=== PATIENT | male | born 1955 | race Caucasian/White ===

== ENCOUNTER 2018-10-08 05:11 | Observation (INO) | payer OTHER ==
[2018-10-08] VITALS (7 sets, daily range): BP systolic 129–137; BP diastolic 75–87
[~2018-10-08] VITALS: Ht 175.3 cm; Wt 103.0 kg
[~2018-10-08 05:11] MED LIST: CRESTOR10 MG PO; FENOFIBRATE145 MG PO; FENOPROFEN CAL600 MG PO; LISINOPRIL10 MG PO; METFORMIN HCL500 MG PO
[2018-10-08] MEDS ORDERED: GABAPENTIN 300 MG CAP ONE (06:03)
[2018-10-08] MEDS ORDERED: CEFAZOLIN SOD 1 GM/NS 50ML 100 ML IV ONE (06:03)
[2018-10-08] MEDS ORDERED: CELECOXIB 200 MG CAP ONE (06:03)
[2018-10-08] MEDS ORDERED: DEXAMETHASONE SOD PHOS 10 MG/1 ML VIAL ONE (06:03)
[2018-10-08] MEDS ORDERED: VANCOMYCIN HCL 1,000 MG ONE (06:11)
[2018-10-08] MEDS ORDERED: TRANEXAMIC ACID 1,000 MG/10 ML ML ONE (06:12)
[2018-10-08] MEDS ORDERED: BACITRACIN 50,000 UNIT VIAL ONE (06:12)
[2018-10-08] MEDS ORDERED: SODIUM CHLORIDE 0.9% 500ML 500 ML ONE (06:12)
[2018-10-08] MEDS ORDERED: ROPIVACAINE 246.25 MG, EPINEPHRINE HCL 1:1000 1ML 0.5 MG, CLONIDINE HCL 0.08 MG, KETORO... INJ ONE ×5 (07:30)
[2018-10-08] MEDS ORDERED: IBUPROFEN 800MG/ 250ML 250 ML IV ONE (08:20)
[2018-10-08] MEDS ORDERED: SODIUM CHLORIDE 0.9% 1000ML 1,000 ML IV SCH (08:55)
[2018-10-08] MEDS ORDERED: HYDROCODONE/APAP 7.5MG-325MG 1 EA TAB PO PRN (09:00)
[2018-10-08] MEDS ORDERED: DIPHENHYDRAMINE HCL INJ 50 MG/ML VIAL IM/IV PRN (09:00)
[2018-10-08] MEDS ORDERED: ONDANSETRON HCL INJ 2MG/ML 2ML 2 MG/ML VIAL IV PRN (09:00)
[2018-10-08] MEDS ORDERED: DOCUSATE SODIUM 100 MG CAP PO PRN (09:00)
[2018-10-08] MEDS ORDERED: HYDROCODONE/APAP 5MG-325MG TAB PO PRN (09:00)
[2018-10-08] MEDS ORDERED: KETOROLAC TROMETHAMINE 30 MG/ML VIAL IV PRN (09:00)
[2018-10-08] MEDS ORDERED: PROMETHAZINE HCL (IM) 25 MG/ML VIAL IM PRN (09:00)
[2018-10-08] MEDS ORDERED: CELECOXIB 100 MG CAP PO SCH (09:00)
[2018-10-08] MEDS ORDERED: ACETAMINOPHEN 650 MG SUPP PR PRN (09:00)
[2018-10-08] MEDS ORDERED: FENTANYL CITRATE/PF 100MCG/2 ML INJ ONE ×2 (09:31→17:48)
[2018-10-08] MEDS ORDERED: INSULIN REGULAR, HUMAN 100 UNIT/1 ML 3ML VIAL ONE (09:33)
--- NOTE | 2018-10-08 09:39 | Diagnostic Imaging Report ---
Knee radiograph, 2 views. History: Findings: Postoperative findings of left knee arthroplasty with prosthetic components in anatomic alignment. No acute fracture. Overlying subcutaneous emphysema and surgical skin teressa are present. Small joint effusion. IMPRESSION: Status post right knee replacement in anatomic position. Signed by: Laurel Manrique MD on 10/08/2018 9:35 AM
--- NOTE | 2018-10-08 10:07 | NUR ---
Patient admitted to unit from PACU. Patient is post op left knee replacement. Patient dressing is double MIGDALIA wrapped d/t bleeding from incisional site. No bleeding noted at this time. Pedal pulses palpable. Lung zamora clear to auscultation. Bowel sounds present but hypoactive. No c/o pain at this time. Right hand IV in place. IV fluids infusing at this time. Patient d/t void.
[2018-10-08] MEDS: ACETAMINOPHEN 1000 MG/100 ML IV SCH ×3 (12:04→23:24)
--- NOTE | 2018-10-08 13:00 | Operative Report ---
DATE OF PROCEDURE: 10/08/2018 SURGEON: Nikunj Lewis MD MECHANICAL MAINTENANCE: Nelson Cordero PA-C. PREOPERATIVE DIAGNOSIS: Osteoarthritis, left knee. POSTOPERATIVE DIAGNOSIS: Osteoarthritis, left knee. PROCEDURE: Left total knee arthroplasty. INDICATIONS: The patient is a 63-year-old gentleman with end-stage arthritis of his left knee. He has failed conservative management and would like to proceed with a left total knee replacement. The risks and benefits of the procedure have been discussed. The hospital stay, implants, and recovery have all been explained. He states he understands and wishes to proceed. PROCEDURE IN DETAIL: The patient was brought to the operating room and placed under general anesthetic. He received prophylactic antibiotics, a regional block and tranexamic acid in the holding area. His left lower extremity was prepped and draped in a sterile manner. A preoperative time-out was performed. The extremity was exsanguinated and a proximal tourniquet was inflated to 300 mmHg. An anterior approach with a medial parapatellar arthrotomy was performed. Clear synovial fluid was removed from the joint. Soft tissue releases were performed to bring the knee up into flexion with the patella everted. Meniscal remnants and marginal osteophytes were removed. The anterior cruciate ligament was sacrificed. A [employer] knee system was used. An extramedullary cutting guide was used to resect the proximal tibia. The cut was referenced off the medial compartment. The tibial base plate was a size #G. The central fin punch was drilled and impacted and attention was directed towards the distal femur. An intramedullary cutting guide was used to resect the distal femur in 5 degrees of valgus and rotation referencing off a combination of landmarks including Whitesides line, the epicondylar axis and the posterior condyles. The femoral component was a size #9. The anterior and posterior cuts were made. A trial reduction was performed. A 10 mm medial congruent tibial insert provided appropriate soft tissue balancing in full extension and 90 degrees of flexion. The patella was resurfaced with a 35 mm patellar button. The thickness was checked before and after and was right around 24 mm. Patellar tracking was noted to be concentric. The trial implants were then all removed. The knee was thoroughly irrigated with a shower tip pulsatile lavage. All of the bone cuts had been irrigated with a spray mixture of diluted polymyxin and vancomycin. A 100 mL premixed pericapsular MATY injection was placed into the surrounding soft tissue. The wound was further irrigated. The components were then cemented into place using a single mix of Palacos cement preloaded with antibiotics. Care was taken to remove extravasated cement. The wound was further irrigated while the cement cured. The arthrotomy was then closed with interrupted #1 Ethibond. The knee was put through flexion and extension to ensure a secure closure. The skin was then closed with subcuticular Vicryl and teressa. A sterile Aquacel bandage and an Juan wrap were applied. Blood loss was minimal. All needle and sponge counts were correct. Nikunj Lewis MD DR/GLORIA /[id number]
[2018-10-08] MEDS ORDERED: DEXTROSE 50% SYRINGE 50 ML IV PRN (13:45)
[2018-10-08] MEDS: CEFAZOLIN SOD 1 GM/NS 50ML 50 ML IV SCH ×2 (14:15→21:28)
--- NOTE | 2018-10-08 14:15 | NUR ---
Visit made by the Spiritual Care Department Pastoral Visitor, Lyssa Alex. PV provided pastoral presence, hospitality, and supportive listening. Pastoral Visitor informed pt/family of the scope of [employer] and availability. BASHIR ROSARIO [employer] M[employer] Machine Tender Spiritual Care Department O: [phone] Pager: [phone] ([phone] number calling from)
[2018-10-08] MEDS ORDERED: EPINEPHRINE HCL 1:1000 1ML 1 MG/ML AMP ONE (14:52)
[2018-10-08] MEDS ORDERED: BUPIVACAINE HCL 0.5% INJ 30 ML VIAL INJ ONE (14:52)
[2018-10-08] MEDS ORDERED: LIDOCAINE HCL 2% LOCAL INJ 5 ML SDV VIAL INJ ONE (15:08)
[2018-10-08] MEDS ORDERED: PROPOFOL IV EMULSION 10 MG/ML 20 ML VIAL ONE (15:08)
[2018-10-08] MEDS ORDERED: SEVOFLURANE INHAL SOLN 250 ML PEN BTL ONE (15:08)
[2018-10-08] MEDS ORDERED: ACETAMINOPHEN 1000 MG/100 ML IV ONE (15:08)
[2018-10-08] MEDS ORDERED: DEXAMETHASONE SOD PHOS INJ 4 MG/ML VIAL ONE (15:08)
[2018-10-08] MEDS ORDERED: ONDANSETRON HCL INJ 2MG/ML 2ML 2 MG/ML VIAL ONE (15:08)
[2018-10-08] MEDS: INSULIN LISPRO 100 UNIT/1 ML 3ML VIAL SQ SCH ×2 (16:30→21:00)
--- NOTE | 2018-10-08 17:00 | NUR ---
Patient voided at this time.
[2018-10-08] MEDS: ASPIRIN 325 MG TAB PO SCH (17:07)
[2018-10-08] MEDS ORDERED: MIDAZOLAM HCL 2 MG/2 ML VIAL ONE (17:48)
--- NOTE | 2018-10-08 19:00 | NUR ---
RECEIVED PATIENT IN REPORT. PATIENT RESTING IN BED AT THIS TIME. NO PAIN REPORTED. NO S&S OF DISTRESS. L KNEE WRAPPED WITH TWO MIGDALIA WRAPS D/T POST-PROCEDURE BLEEDING. HEELS ELEVATED OFF BED WITH PILLOW. FOOT PUMPS ON. COLLIN HOSE TO R LEG. BED LOCKED IN LOWEST POSITION, SIDE RAILS UPX2, CALL LIGHT IN REACH.
[2018-10-08] MEDS ORDERED: SIMVASTATIN 20 MG TAB PO SCH (21:00)
[2018-10-08] MEDS ORDERED: ZOLPIDEM TARTRATE 5 MG TAB PO PRN (21:00)
--- NOTE | 2018-10-08 21:20 | NUR ---
PATIENTS BLOOD SUGAR IS 251. PATIENT STATES HE DOES NOT TAKE INSULIN AT HOME AND REFUSED IT AT THIS TIME. STATES THE [facility] WILL BRING IT DOWN WHEN HE TAKES THAT.
[2018-10-09] VITALS: BP 124/74
[2018-10-09 04:00] VITALS: BP 113/68
[2018-10-09 06:14] LABS: HEMATOCRIT 38.6 % (38.2-49.6); HEMOGLOBIN 13.6 g/dL (14.0-18.0)
[2018-10-09] MEDS: ACETAMINOPHEN 1000 MG/100 ML IV SCH (06:30)
--- NOTE | 2018-10-09 06:34 | Consultation ---
DATE OF CONSULTATION: REASON FOR CONSULTATION: Medical management. HISTORY OF PRESENT ILLNESS: The patient is a 63-year-old gentleman, status post total left knee arthroplasty for end-stage osteoarthritis of the left knee. He is doing well postoperatively, has minimal pain to the left knee and denies any chest pain, fever, chills, headaches, shortness of breath, or dizziness on review of systems. PAST MEDICAL HISTORY: Significant for diabetes, hypertension, and hyperlipidemia. MEDICATIONS: See MAR. ALLERGIES: NONE. SOCIAL HISTORY: Nonsmoker and nondrinker. He is , lives at home, still works. FAMILY HISTORY: Noncontributory at this time. PHYSICAL EXAMINATION: VITAL SIGNS: Temperature 97.7, pulse 79, blood pressure 129/75, and sats 96% on room air. GENERAL: No apparent distress. NECK: Supple. CARDIOVASCULAR: Regular rate and rhythm. LUNGS: Clear to auscultation bilaterally. ABDOMEN: Good bowel sounds. Soft and nontender. EXTREMITIES: No clubbing or cyanosis. NEUROLOGIC: Nonfocal. Left knee is bandaged with no seepage. ASSESSMENT AND PLAN: 1. Left knee pain. Continue with physical therapy and pain control. 2. Anemia. Check a CBC. 3. Diabetes. Continue with current care and monitoring. 4. Hypertension. Continue with his medications and monitoring his blood pressure. 5. Hyperlipidemia. Continue with his cholesterol medicines. Please see hospital chart for full details. MD DEACON Lei/GLORIA /[id number]
[2018-10-09] MEDS: CEFAZOLIN SOD 1 GM/NS 50ML 50 ML IV SCH (07:00)
--- NOTE | 2018-10-09 07:00 | NUR ---
Rcvd patient in report this am. Patient is awake in bed at this time. No s/s of distress noted.
[2018-10-09] MEDS: INSULIN LISPRO 100 UNIT/1 ML 3ML VIAL SQ SCH (07:30)
[2018-10-09] MEDS ORDERED: METFORMIN HCL 500 MG TAB PO SCH (08:00)
[2018-10-09] MEDS: ASPIRIN 325 MG TAB PO SCH (08:29)
[2018-10-09 08:39] VITALS: BP 142/85
[2018-10-09] MEDS ORDERED: ASPIRIN81 MG PO (08:52)
[2018-10-09] MEDS ORDERED: ACETAMINOPHEN 1000 MG/100 ML IV PRN (09:00)
[2018-10-09] MEDS ORDERED: SIMVASTATIN 40 MG TAB PO SCH (09:00)
[2018-10-09] MEDS ORDERED: LISINOPRIL 20 MG TAB PO SCH (09:00)
[2018-10-09] MEDS ORDERED: LISINOPRIL 10 MG TAB PO SCH (09:00)
[2018-10-09] MEDS ORDERED: FENOFIBRATE 145 MG TAB PO SCH (09:00)
[2018-10-09 09:27] VITALS: BP 142/85
[2018-10-09] MEDS ORDERED: ONDANSETRON HCL 4 MG ORAL DISINTEGRATING TAB PO PRN (09:30)
--- NOTE | 2018-10-09 10:36 | NUR ---
PATIENT DME AND HOME HEALTH COMPANIES PRE-ARRANGED BY DR. EUGENE'S OFFICE. PATIENT WITH HOME HEALTH AND DME CONTACT INFORMATION. PATIENT AWARE TO CALL CM IF ANY PROBLEMS OCCUR WITHIN 3 DAYS POST- DISCHARGE. HOME HEALTH EXPLAINED IN DEPTH WITH SERVICES PROVIDED. PATIENT VERBALLY UNDERSTOOD AND SIGNED CHOICE LETTER. THE FOLLOWING HOME HEALTH AND DME COMPANY VERIFIED PATIENT IS ON SERVICE WITH THEM: [facility] (P) [phone] (F) [phone] CM CONFIRMED WITH ANN, LIAISON, THAT PATIENT TO RECEIVE SERVICES TOMORROW. DME PLUS SOLUTION : ([employer], [employer], 3-IN-1 [employer]) (P) [phone] (F) [phone] CM SPOKE TO MARV AND PATIENT; DME CONFIRMED DELIVERED.
[2018-10-09] MEDS ORDERED: NORCO 7.5-3251 EACH PO (11:24)
[2018-10-09 11:58] VITALS: BP 137/77
--- NOTE | 2018-10-09 12:11 | NUR ---
IV removed from right hand. Pressure dressing applied.
--- NOTE | 2018-10-09 12:51 | NUR ---
Patient discharged from facility to home. Patient assisted out via staff and wheelchair. Reviewed all discharge paperwork, follow up appts, and RX's were called into pharmacy per Dr. Lewis.
[2018-10-09] MEDS ORDERED: CELECOXIB 200 MG CAP PO SCH (17:00)
== END 2018-10-09 12:51 | disposition home health service (06) ==
LOC: OR 05:11 → PACU V 08:57 → MED/SURG 10:24
PROVIDERS: ADMIT Specialist; ATTEND Specialist
DX: M17.12 Unilateral primary osteoarthritis, left knee (principal); Z88.5 Allergy status to narcotic agent; D64.9 Anemia, unspecified; E11.9 Type 2 diabetes mellitus without complications; I10 Essential (primary) hypertension; E78.5 Hyperlipidemia, unspecified; K21.9 Gastro-esophageal reflux disease without esophagitis; Z90.49 Acquired absence of other specified parts of digestive tract; Z79.82 Long term (current) use of aspirin; Z79.84 Long term (current) use of oral hypoglycemic drugs
CPT/HCPCS: 27447; 36415 ×2; 73560; 82948 ×2; 85014; 85018; 86850; 86900; 86920; 97110; 97116 ×2; 97161; C1713; G0378 ×2; J0131 ×2; J0171; J0690 ×2; J1100 ×2; J1885; J2001; J2250; J2405; J2704; J2795; J3010; J3370; J7040; C1776; J1817